=== PATIENT | female | born 1950 | race American Indian/Alaskan Native ===

== ENCOUNTER 2021-11-10 13:57 | Emergency (ER) | payer MEDICARE ==
[2021-11-10 14:33] VITALS: BP 139/81
[2021-11-10] MEDS ORDERED: LIDOCAINE VISCOUS 2% 15 ML ORAL LIQD PO ONE (15:35)
[2021-11-10] MEDS ORDERED: DICYCLOMINE 10 MG/5 ML ORAL LIQD PO ONE (15:35)
[2021-11-10] MEDS ORDERED: ALUM-MAG HYDROXIDE-SIMETHICONE 200-200-20MG/5ML ORAL LIQD 30 ML PO ONE (15:35)
[2021-11-10] MEDS ORDERED: ONDANSETRON 4 MG ODT TAB PO ONE (15:35)
[2021-11-10 16:41] LABS: Hematocrit 39.4 % (30.3-42.9); Hemoglobin 13.2 gm/dl (10.1-14.3); Mean Corpuscular HGB Conc 33 % (30-34); Mean Corpuscular Volume 83 fl (79-97); Platelet Count 290 K/mm3 (140-440); Red Blood Count 4.76 M/mm3 (3.65-5.03); Red Cell Distribution Width 15.8 % (13.2-15.2)
[2021-11-10 17:00] LABS: Alanine Aminotransferase 7 units/L (7-56); Albumin 4.3 g/dL (3.9-5); Blood Urea Nitrogen 8 mg/dL (7-17); Calcium 10.1 mg/dL (8.4-10.2); Hemolysis Index 8
[2021-11-10 17:01] LABS: BUN/Creatinine Ratio 13
[2021-11-10] MEDS ORDERED: ALBUTEROL 2.5 MG/3 ML NEBU IH ONE ×2 (19:08→19:09)
[2021-11-10] MEDS ORDERED: IPRATROPIUM 0.02% NEBU 2.5 ML IH ONE (19:08)
[2021-11-10 19:18] LABS: Bilirubin,Urine NEG (Negative); Blood,Urine NEG (Negative); Color,Urine Yellow (Yellow); Mucus,Urine 3+ /HPF
--- NOTE | 2021-11-10 19:33 | Emergency Department Report ---
ED Abdominal Pain HPI - General Chief Complaint: Abdominal Pain Stated Complaint: GERD/CONSTIPATION Time Seen by Provider: 11/10/21 15:33 Source: patient Mode of arrival: Ambulatory Limitations: No Limitations - History of Present Illness Initial Comments: 71-year-old black female with a past medical history of hypertension, CHF, and diabetes presents to the emergency department for evaluation of 1 week history of bilateral lower abdominal pain that sometimes radiates to her back. She states the pain is like a burning type pain mostly but it feels like gas because it moves around to other parts of her stomach also. She states that she has been nauseated and had a decreased appetite, but denies vomiting, diarrhea, fever, and vaginal discharge. She states that she has had decreased amount of bowel movements the last couple days also. She states that she has not taken anything for the pain. She states that pain is worse at 7 out of 10. MD Complaint: abdominal pain -: Gradual, week(s) (1) Location: LUQ, RUQ Radiation: other (Intermittently in different area) Migration to: no migration Severity scale (0 -10): 7 Quality: burning Consistency: intermittent Associated Symptoms: nausea. denies: vomiting, diarrhea, fever, chills, dysuria, hematemesis, hematochezia, melena, hematuria, anorexia, syncope - Related Data Allergies Allergy/AdvReac Type Severity Reaction Status Date / Time No Known Allergies Allergy Unverified 11/10/21 16:04 ED Review of Systems ROS: Stated complaint: GERD/CONSTIPATION Other details as noted in HPI Comment: All other systems reviewed and negative Constitutional: denies: chills, diaphoresis, fever, malaise, weakness Eyes: denies: eye pain, eye discharge ENT: denies: ear pain, dental pain Respiratory: denies: cough, orthopnea, shortness of breath Cardiovascular: denies: chest pain, palpitations, dyspnea on exertion, orthopnea, edema, syncope, paroxysmal nocturnal dyspnea Endocrine: no symptoms reported Gastrointestinal: abdominal pain, nausea, constipation. denies: vomiting, diarrhea, hematemesis, melena, hematochezia Genitourinary: denies: urgency, dysuria, frequency, hematuria, discharge Musculoskeletal: back pain Skin: denies: rash, lesions Neurological: denies: headache, weakness, numbness, paresthesias, confusion Psychiatric: denies: anxiety, depression Hematological/Lymphatic: denies: easy bleeding, easy bruising ED Physical Exam - General Limitations: No Limitations General appearance: alert, in no apparent distress - Head Head exam: Present: atraumatic, normocephalic - Eye Eye exam: Present: normal appearance. Absent: conjunctival injection - Neck Neck exam: Present: normal inspection. Absent: tenderness, lymphadenopathy - Respiratory Respiratory exam: Present: normal lung sounds bilaterally. Absent: respiratory distress, wheezes, rales, rhonchi, stridor, chest wall tenderness, accessory muscle use - Cardiovascular Cardiovascular Exam: Present: regular rate, normal heart sounds - GI/Abdominal GI/Abdominal exam: Present: soft, normal bowel sounds. Absent: distended, tenderness, guarding, rebound, rigid - Extremities Exam Extremities exam: Present: normal inspection - Back Exam Back exam: Present: normal inspection. Absent: tenderness, CVA tenderness (R), CVA tenderness (L) - Neurological Exam Neurological exam: Present: alert, oriented X3 - Psychiatric Psychiatric exam: Present: normal affect, normal mood - Skin Skin exam: Present: warm, dry, intact, normal color ED Course Vital Signs 11/10/21 14:32 Temperature 98.6 F Pulse Rate 95 H Respiratory 16 Rate Blood Pressure 139/81 [Right] O2 Sat by Pulse 97 Oximetry - Reevaluation(s) Reevaluation #1: Patient states that abdominal pain has totally resolved, and she feels much better. 11/10/21 19:32 ED Medical Decision Making - Lab Data Result diagrams: 11/10/21 15:58 11/10/21 15:58 - EKG Data EKG shows normal: sinus rhythm Rate: normal - EKG Data Interpretation: no acute changes 11/10/21 19:42 No acute ischemic changes noted - Medical Decision Making 71-year-old black female with a past medical history of hypertension, CHF, and diabetes presents to the emergency department for evaluation of 1 week history of bilateral lower abdominal pain that sometimes radiates to her back. She states the pain is like a burning type pain mostly but it feels like gas because it moves around to other parts of her stomach also. She states that she has been nauseated and had a decreased appetite, but denies vomiting, diarrhea, fever, and vaginal discharge. She states that she has had decreased amount of bowel movements the last couple days also. She states that she has not taken anything for the pain. She states that pain is worse at 7 out of 10. White count within normal limits, LFTs within normal limits, no fever, and no tenderness on palpation to abdomen therefore low suspicion of acute abdomen. UA was negative for urinary tract infection. Patient with history of diabetes, so acute cardiac issue was ruled out with an EKG negative for STEMI and troponin within normal limits. Pain was totally resolved after medication, and patient stated that she felt much better. She was advised that her blood glucose was elevated and to follow-up with her primary care provider for possible adjustment of diabetes medications. She was advised to return to the emergency department for worsening symptoms or any other concerning symptoms. Patient verbalized understanding of and agreement with plan of care. - Differential Diagnosis Diverticulitis, appendicitis, MS, gastroenteritis Critical care attestation.: If time is entered above; I have spent that time in minutes in the direct care of this critically ill patient, excluding procedure time. ED Disposition Clinical Impression: Abdominal pain Qualifiers: Abdominal location: lower abdomen, unspecified Qualified Code(s): R10.30 - Lower abdominal pain, unspecified Disposition: 01 HOME / SELF CARE / HOMELESS Is pt being admited?: No Does the pt Need Aspirin: No Condition: Stable Instructions: Abdominal Pain (ED), Abdominal Pain, Adult, [id number] Additional Instructions: Follow-up with primary care provider for further evaluation. Return to the [facility] department for any concerning symptoms. Referrals: SHABANA MCFARLANE MD [Referring] - 3-5 Days SANDOR BIGGS MD [Staff Physician] - 3-5 Days Time of Disposition: 19:52
--- NOTE | 2021-11-11 10:22 | Electrocardiograph Report ---
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
== END 2021-11-10 20:32 | disposition home or self-care (01) ==
LOC: ED 13:57
DX: R10.30 Lower abdominal pain, unspecified (principal)
CPT/HCPCS: 36415; 80053; 81001; 83690; 84484; 85027; 93005; 99283; J3490; Q0162

== ENCOUNTER 2022-04-16 10:53 | Outpatient (CLI) | payer MEDICARE ==
--- NOTE | 2022-04-17 18:28 | Mammography Report ---
DIGITAL SCREENING MAMMOGRAM WITH CAD, 04/16/2022 CLINICAL INFORMATION / INDICATION: Routine screening mammography. TECHNIQUE: Digital bilateral 2D mammography was obtained in the craniocaudal and mediolateral obliqu e projections. This examination was interpreted with the benefit of Computer-Aided Detection analysis . COMPARISON: None available FINDINGS: Breast Density: There are scattered areas of fibroglandular density. No dominant mass, suspicious calcifications, or architectural distortion in either breast. IMPRESSION: No mammographic evidence of malignancy. Follow up recommendation: Routine yearly screening mammogram. BI-RADS Category 1: NEGATIVE A "normal" or negative report should not discourage follow up or biopsy of a clinically significant f inding. A written summary of these findings will be mailed to the patient. The patient will be entered into a mammography reporting system which will generate a reminder letter for the patient's next appointmen t at the appropriate interval. The [employer] recommends yearly mammograms starting at age 40 and continuing as l camila as a woman is in good health. Breast MRI is recommended for women with an approximate 20-25% or greater lifetime risk of breast cancer, including women with a strong family history of breast or ova kaushal cancer or who have been treated for Hodgkin's disease. Signer Name: Shannen Steel MD Signed: 04/17/2022 6:24 PM Workstation Name: [id number]
== END 2022-04-16 10:54 | disposition home or self-care (01) ==
LOC: MAMMO 10:53
PROVIDERS: ATTEND Family Medicine
DX: Z12.31 Encounter for screening mammogram for malignant neoplasm of breast (principal)
CPT/HCPCS: 77067

== ENCOUNTER 2022-05-15 09:39 | Outpatient (CLI) | payer MEDICARE ==
--- NOTE | 2022-05-15 11:39 | Mammography Report ---
DEXA BONE DENSITY SCAN INDICATION / CLINICAL INFORMATION: Z78.0 POSTMENOPAUSAL STATE. 72 years Female COMPARISON: None available. LUMBAR SPINE, L1-L4: - Bone mineral density (BMD) = 1.174 g/cm2. - T-score = 1.2 - Z-score = 2.7 Change (%) since most recent prior (if available): None available. LEFT HIP, NECK : - Bone mineral density (BMD) = 0.751 g/cm2. - T-score = -0.9 - Z-score = 0.1 Change (%) since most recent prior (if available): None available. IMPRESSION: 1. WHO Classification: Normal bone density. Fracture Risk: Not Increased. Note: 10-Year Fracture Risk (FRAX) not reported. This DEXA unit lacks FRAX functionality. BMD Reporting Guidelines (ISCD, 2015) BMD Reporting in Postmenopausal Women and in Men Age 50 and Older - T-scores are preferred. - The WHO densitometric classification is applicable. BMD Reporting in Females Prior to Menopause and in Males Younger Than Age 50 - Z-scores, not T-scores, are preferred. This is particularly important in children. - A Z-score of -2.0 or lower is defined as below the expected range for age, and a Z-score above -2.0 is within the expected range for age. - Osteoporosis cannot be diagnosed in men under age 50 on the basis of BMD alone. - The WHO diagnostic criteria may be applied to women in the menopausal transition. http://www.iscd.org/official-positions/0985-cavx-czanlwxn-positions-adult/ Signer Name: Clovis Alfred MD Signed: 05/15/2022 11:35 AM Workstation Name: [id number]
== END 2022-05-15 09:40 | disposition home or self-care (01) ==
LOC: MAMMO 09:39
PROVIDERS: ATTEND Family Medicine
DX: Z01.818 Encounter for other preprocedural examination (principal); Z01.810 Encounter for preprocedural cardiovascular examination; I10 Essential (primary) hypertension; R60.0 Localized edema; Z78.0 Asymptomatic menopausal state
CPT/HCPCS: 77080; C8929; 93306